=== PATIENT | female | born 1990 | race African-American/Black ===

== ENCOUNTER 2020-11-20 18:31 | Emergency (ER) | payer OTHER ==
[~2020-11-20] VITALS: Ht 152.4 cm; Wt 61.0 kg
[2020-11-20] MEDS ORDERED: NAPR-1176 MT (19:08)
[2020-11-20] MEDS ORDERED: CYCL10TA7 MT (19:09)
[2020-11-20] MEDS ORDERED: IBUPROFEN 600MG TABLET PO ONE (19:15)
[2020-11-20] MEDS ORDERED: ACETAMINOPHEN 325MG TABLET PO ONE (19:15)
[2020-11-20 19:50] VITALS: BP 141/82
== END 2020-11-20 19:52 | disposition home or self-care (01) ==
LOC: ER 18:31
DX: S16.1XXA Strain of muscle, fascia and tendon at neck level, initial encounter (principal); V49.9XXA Car occupant (driver) (passenger) injured in unspecified traffic accident, initial encounter; Y93.89 Activity, other specified; Y92.89 Other specified places as the place of occurrence of the external cause; Y99.8 Other external cause status
CPT/HCPCS: 99283